=== PATIENT | female | born 1980 | race Caucasian/White ===

== ENCOUNTER 2017-02-17 11:16 | Emergency (ER) | payer MEDICAID ==
[~2017-02-17] VITALS: Ht 157.5 cm; Wt 70.0 kg
[~2017-02-17 11:16] MED LIST: PRENATAL VITAMINS
[2017-02-17 11:21] VITALS: BP 106/59
--- NOTE | 2017-02-17 11:48 | NUR ---
ua collecte and dip results entered
[2017-02-17] MEDS ORDERED: KETOROLAC 30 MG/ML VIAL IVP ONE (11:55)
[2017-02-17] MEDS ORDERED: NACL 0.9% 1,000 ML IV ONE (11:55)
[2017-02-17] MEDS ORDERED: ONDANSETRON 4 MG/2 ML VIAL IVP ONE (11:55)
--- NOTE | 2017-02-17 12:12 | NUR ---
ASSUMED PATIENT CARE, CONCUR WITH TRIAGE ASSESSMENT. PLACED IN ED 1, ORIENTED TO PLAN OF CARE. TAKEN TO CT ACCOMPANIED BY TECH.
[2017-02-17 12:38] LABS: BASOPHILS # (AUTO) 0.5 K/uL (0.00-0.22); BASOPHILS % (AUTO) 3.8 % (0.0-2.0); EOSINOPHILS # (AUTO) 0.5 K/uL (0-0.4); EOSINOPHILS % (AUTO) 3.7 % (0.0-4.0); HEMATOCRIT 44.4 % (36-48); HEMOGLOBIN 14.2 g/dL (12.0-16.0); LYMPHOCYTES # (AUTO) 1.1 K/uL (2.5-16.5); LYMPHOCYTES % (AUTO) 8.5 % (20.5-51.1); MEAN CORPUSCULAR HEMOGLOBIN 28 pg (27-31); MEAN CORPUSCULAR HGB CONC 32 g/dL (33-37); MEAN CORPUSCULAR VOLUME 89 fL (80-94); MONOCYTES # (AUTO) 0.7 K/uL (0.8-1.0); MONOCYTES % (AUTO) 5.5 % (1.7-9.3); NEUTROPHILS # (AUTO) 10.1 K/uL (1.8-7.7); NEUTROPHILS % (AUTO) 78.5 % (42.2-75.2); PLATELET COUNT (AUTO) 190 K/uL (140-450); RED BLOOD CELL COUNT(AUTO) 4.99 MIL/uL (4.20-5.40)
[2017-02-17 12:47] LABS: ANION GAP 12.2 (8-16); CARBON DIOXIDE 28.1 mmol/L (21-32); CREATININE 0.7 mg/dL (0.6-1.3); POTASSIUM 4.3 mmol/L (3.5-5.1)
[2017-02-17 12:53] LABS: ALBUMIN 3.7 g/dL (3.4-5.0); TOTAL BILIRUBIN 0.3 mg/dL (0.0-1.0)
[2017-02-17 12:57] LABS: WHITE BLOOD COUNT (AUTO) 12.9 K/uL (4.8-10.8)
[2017-02-17 13:03] LABS: BILIRUBIN,URINE NEGATIVE (NEGATIVE); BLOOD, URINE 3+ (NEGATIVE); COLOR,URINE YELLOW (YELLOW); LEUKOCYTE ESTERASE ,URINE 1+ (NEGATIVE); NITRITE, URINE NEGATIVE (NEGATIVE); UGLUCOSE NEGATIVE (NEGATIVE)
[2017-02-17 13:20] LABS: APPEARANCE,URINE HAZY (CLEAR)
[2017-02-17 13:30] LABS: RBC,URINE 3-10 (FEW) /HPF (0-5); WBC,URINE 16-25 (MOD) /HPF (0-5)
--- NOTE | 2017-02-17 13:35 | NUR ---
MD AT BEDSIDE, RE-EVALUATING PATIENT. PLAN TO DC HOME.
[2017-02-17] MEDS ORDERED: ACETAMINOPHEN EXTRA STRENGTH 500 MG TAB PO ONE (13:40)
[2017-02-17] MEDS ORDERED: CIPROFLOXACIN 250 MG TAB PO ONE (13:40)
[2017-02-17 14:11] VITALS: BP 107/58
--- NOTE | 2017-02-17 15:00 | NUR ---
DISPO AND MEDICAL DECISION MAKING, DC HOME WITH INSTRUCTIONS AND PRESCRIPTIONS, ALL UNDERSTOOD BY PATIENT WELL, VSWNL, NO DISTRESS.
== END 2017-02-17 15:00 | disposition home or self-care (01) ==
LOC: MED 11:16
DX: N12 Tubulo-interstitial nephritis, not specified as acute or chronic (principal); Z79.899 Other long term (current) drug therapy
CPT/HCPCS: 36415; 74176; 80053; 81001; 81025; 85025; 87086; 96374; 96375; 99285; J1885; J2405

== ENCOUNTER 2018-02-03 18:00 | Emergency (ER) | payer MEDICAID ==
[~2018-02-03] VITALS: Ht 160 cm; Wt 71.3 kg
[2018-02-03 18:30] VITALS: BP 112/67
--- NOTE | 2018-02-03 20:45 | NUR ---
PATIENT AMBULATED TO ER BED 10.
--- NOTE | 2018-02-03 20:45 | NUR ---
37/F C/O DYSURIA, SUPRAPUBIC PAIN RADIATING LEFT LOWER BACK AND CHILLS X 3 DAYS. ALSO REPORTS N/V. BS ACTIVE X4, ABD SOFT, ROUND, -TENDERNESS. STATES SHE HAD UTI X 1 MONTH AGO AND FINISHED ATB TX WITH RELIEF OF SX UNTIL 3 DAYS AGO. DENIES FEVER/CHILLS DENIES PMH
--- NOTE | 2018-02-03 21:49 | NUR ---
Patient discharged with v/s stable. Written and verbal after care instructions given and explained. Patient alert, oriented and verbalized understanding of instructions. Ambulatory with steady gait. All questions addressed prior to discharge. ID band removed. Patient advised to follow up with PMD. Rx of ULTRAM, MACROBID, ZOFRAN ODT given. Patient educated on indication of medication including possible reaction and side effects. Opportunity to ask questions provided and answered.
[2018-02-03 21:54] VITALS: BP 107/59
== END 2018-02-03 21:59 | disposition home or self-care (01) ==
LOC: MED 18:00
DX: N39.0 Urinary tract infection, site not specified (principal)
CPT/HCPCS: 81002; 81025; 99283

== ENCOUNTER 2022-04-11 16:39 | Emergency (ER) | payer MEDICAID ==
[~2022-04-11] VITALS: Ht 165.1 cm; Wt 72.1 kg
[2022-04-11 16:50] VITALS: BP 101/61
[2022-04-11] MEDS ORDERED: NACL 0.9% 1,000 ML IV SCH (16:55)
[2022-04-11] MEDS ORDERED: ONDANSETRON 4 MG/2 ML VIAL IVP ONE (16:55)
--- NOTE | 2022-04-11 17:10 | NUR ---
41F PRESENTS TO ED WITH C/O LEFT FLANK PAIN FOR OVER A WEEK AND N/V/D, ABD PAIN AND LOWER BACK PAIN SINCE THIS MORNING. PT REPORTS A CONSTANT ACHING LIKE, 8/10 PAIN RADIATING FROM LOWER ABD TO LOWER BACK. PT REPORTS 4 EPISODES OF VOMITING AND 3 EPISODES OF DIARRHEA TODAY. PT DENIES TAKING MEDICATION TODAY, DENIES FEVERS, CHILLS, AND UTI SYMPTOMS. PT CHANGED INTO GOWN AND PLACED ON BEDSIDE MONITOR.
[2022-04-11 17:14] LABS: BASOPHILS % (AUTO) 0.2 % (0.0-2.0); EOSINOPHILS # (AUTO) 0.1 K/uL (0-0.4); EOSINOPHILS % (AUTO) 0.5 % (0.0-4.0); HEMATOCRIT 44.5 % (36-48); LYMPHOCYTES # (AUTO) 0.7 K/uL (2.5-16.5); LYMPHOCYTES % (AUTO) 4.2 % (20.5-51.1); MEAN CORPUSCULAR HEMOGLOBIN 30 pg (27-31); MEAN CORPUSCULAR HGB CONC 34 g/dL (33-37); MEAN CORPUSCULAR VOLUME 87.8 fL (80-94); MONOCYTES # (AUTO) 0.5 K/uL (0.8-1.0); MONOCYTES % (AUTO) 3.3 % (1.7-9.3); NEUTROPHILS # (AUTO) 14.1 K/uL (1.8-7.7); NEUTROPHILS % (AUTO) 91.8 % (42.2-75.2); PLATELET COUNT (AUTO) 215 K/uL (140-450); RED BLOOD CELL COUNT(AUTO) 5.08 MIL/uL (4.20-5.40); WHITE BLOOD COUNT (AUTO) 15.4 K/uL (4.8-10.8)
[2022-04-11 17:30] LABS: ALBUMIN 4.6 g/dL (3.4-5.0); ANION GAP 13.8 (8-16); CARBON DIOXIDE 25.9 mmol/L (21-32); CREATININE 0.8 mg/dL (0.6-1.3); POTASSIUM 3.7 mmol/L (3.5-5.1); TOTAL BILIRUBIN 0.7 mg/dL (0.0-1.0)
[2022-04-11 17:31] LABS: APPEARANCE,URINE CLEAR (CLEAR); BILIRUBIN,URINE NEGATIVE (NEGATIVE); BLOOD, URINE 2+ (NEGATIVE); COLOR,URINE YELLOW (YELLOW); LEUKOCYTE ESTERASE ,URINE NEGATIVE (NEGATIVE); NITRITE, URINE NEGATIVE (NEGATIVE); UGLUCOSE NEGATIVE (NEGATIVE)
[2022-04-11 18:00] LABS: RBC,URINE 11-20 (MOD) /HPF (0-5); WBC,URINE 0-5 /HPF (0-5)
[2022-04-11 18:03] LABS: OTHER CASTS, URINE None Seen /LPF (None Seen)
[2022-04-11] MEDS ORDERED: cefTRIAXone 1,000 MG in DEXT 5% MINI-BAG PLUS 50 ML IV ONE (18:05)
[2022-04-11] MEDS ORDERED: cefTRIAXone 1,000 MG VIAL ONE (18:49)
--- NOTE | 2022-04-11 19:20 | NUR ---
Pt report given to MARIANNE Garcia. Transfer of care at this time.
[2022-04-11] MEDS ORDERED: KETOROLAC 15 MG/ML VIAL IVP ONE (19:30)
[2022-04-11] MEDS ORDERED: ACETAMINOPHEN 325 MG TAB PO ONE (19:30)
[2022-04-11] MEDS ORDERED: CEPH-588 PO (19:37)
[2022-04-11] MEDS ORDERED: ONDA-188 SL (19:38)
--- NOTE | 2022-04-11 20:00 | NUR ---
PT AMBULATED TO RESTROOM
[2022-04-11 20:27] VITALS: BP 93/51
--- NOTE | 2022-04-11 20:28 | NUR ---
Patient discharged with v/s stable. Written and verbal after care instructions given and explained. Patient alert, oriented and verbalized understanding of instructions. Ambulatory with steady gait. All questions addressed prior to discharge. ID band removed. Patient advised to follow up with PMD. Rx of KEFLEX & ZOFRAN given. Patient educated on indication of medication including possible reaction and side effects. Opportunity to ask questions provided and answered.
== END 2022-04-11 20:28 | disposition home or self-care (01) ==
LOC: MED 16:39
DX: N12 Tubulo-interstitial nephritis, not specified as acute or chronic (principal); Z90.710 Acquired absence of both cervix and uterus
CPT/HCPCS: 36415; 74177; 80053; 81001; 81025; 83605; 83690; 85025; 87040; 87086; 96361; 96365; 96375; 99285; J0696; J1885; J2405; J7030; Q9967